=== PATIENT | female | born 1985 | race Caucasian/White ===

== ENCOUNTER 2020-10-05 17:25 | Emergency (ER) | payer BC ==
--- NOTE | 2020-10-05 19:32 | ED Physician Documentation ---
History of Present Illness - Stated complaint Stated Complaint: LT BREAST PX/MASS - Chief complaint Chief Complaint: General - Additonal information Additional information: 34-year-old female presents emergency department for evaluation of number of months of the left sided breast pain but now what she feels is a mass on the left side of the breast for the last few days. She does have a history of breast implants that she received about 10 years ago. No history of breast trauma blunt chest trauma or airbag deployment. No swelling or erythema. No nipple drainage. Patient does not know her family history for breast disease as she is estranged from them. no cough, fevers, night sweats, weight loss Review of Systems Constitutional: denies: Fever, Chills Eyes: reports: Reviewed and negative Ears: reports: Reviewed and negative Nose: reports: Reviewed and negative Throat: reports: Reviewed and negative Cardiac: reports: Reviewed and negative Respiratory: denies: Dyspnea, Cough GI: reports: Reviewed and negative : reports: Reviewed and negative Skin: denies: Rash, Lesions, Abrasion (s) PD PAST MEDICAL HISTORY - Present Medications Home Medications: Ambulatory Orders Medication Instructions Recorded Confirmed No Known Home Medications 10/05/20 10/05/20 - Allergies Allergies/Adverse Reactions: Allergies Allergy/AdvReac Type Severity Reaction Status Date / Time No Known Drug Allergies Allergy Verified 10/05/20 17:35 PD ED PE EXPANDED - General General: Alert, No acute distress - Cardiac Cardiac: Regular Rate, Radial strong equal, Other (Chaperoned breast exam completed with Josee the RN. No breast swelling or erythema. No axillary lymphadenopathy. There is some firm fibrous tissue at about 3:00 on the left lateral breast but no erythema or palpable mass.) - Respiratory Respiratory: Clear to ausultation arely. No: Distress, Labored - Abdomen Abdomen: Normal Bowel sounds. No: Tender to palpation Results - Vitals Vitals: Vital Signs - 24 hr 10/05/20 17:29 Temperature 36.3 C L Heart Rate 83 Respiratory 18 Rate Blood Pressure 145/104 H O2 Saturation 98 - Rads (name of study) limited breast US Radiology: See rad report, Other (Per mechanical engineering technologist no mass was seen.) PD MEDICAL DECISION MAKING - ED course Complexity details: reviewed results, re-evaluated patient, d/w patient ED course: 34-year-old female presents emergency department for evaluation of left breast pain for a number of months as well as which she feels is a discrete mass. I was unable to palpate a discrete mass. We did attempt to do a limited breast ultrasound at the bedside and per the mechanical engineering technologist no mass or fluid collections were seen. Her exam is not consistent with a cellulitis. Patient is scheduled to establish care with a primary care provider on 28 October. I advised her that she should continue to discuss this issue as she may benefit from further evaluation which could include mammography. Departure - Departure Disposition: 01 Home, Self Care Clinical Impression: Breast pain, left Condition: Stable Record reviewed to determine appropriate education?: Yes Comments: Blake it is important that you continue to follow-up with a primary care provider that you are scheduled with in October. You do have pain in the left breast but no mass was seen today on the ultrasound imaging. Unfortunately we cannot do mammography through the emergency department. Your primary care provider will likely be able to order the appropriate imaging to further discuss this concern. Return to the emergency department if you develop night sweats, have cough unintentional weight loss suddenly severe or different breast pain or you have breast swelling and redness.
--- NOTE | 2020-10-05 19:46 | Ultrasound Report ---
PROCEDURE: Breast Unilateral Limited INDICATIONS: L breast mass TECHNIQUE: Real-time focused scanning performed in the upper outer quadrant of the left breast and le ft axilla with image documentation. COMPARISON: None. FINDINGS: Ultrasound evaluation in the area of clinical concern in the upper-outer quadrant of the left breast centered at the 2:00 position 7 cm from the nipple demonstrates no discrete cystic or solid mass. No suspicious enlarged left axillary lymph nodes identified. IMPRESSION: 1. No discrete cystic or solid mass identified in the area of clinical concern in the upper-outer anna drant of the left breast. 2. Recommend clinical follow-up of palpable abnormality and further evaluation with mammography when feasible. Reviewed by: Collins Downs MD on 10/05/2020 7:45 PM PDT Approved by: Collins Downs MD on 10/05/2020 7:45 PM PDT Station ID: [id number]
[2020-10-05 19:56] VITALS: BP 142/91
== END 2020-10-05 19:55 | disposition home or self-care (01) ==
LOC: ED 17:25
DX: N64.4 Mastodynia (principal); Z98.82 Breast implant status
CPT/HCPCS: 99283; 99284